=== PATIENT | male | born 1960 | race Caucasian/White ===

== ENCOUNTER → 2018-02-05 | Outpatient (CLI) | payer OTHER ==
[~2018-02-05] MED LIST: ACETAMINOPHEN325 M1 PO; ALEVE220 MG PO; ASPIRIN EC325 M1 PO; CYMBALTA30 MG PO; FLEXERIL PO; OXYCODONE HCL 55 MG PO; OXYCONTIN10 M1 PO; OXYCONTIN20 M1 PO; OXYIR5 MG PO; PROZAC20 MG PO; STOOL SOFTENER1 EAC2 PO; TORADOL 10 MG PO; VICODIN 5-5001 EACH PO; XANAX 0.5 MG0.5 MG PO; XARELTO10 MG PO; [UNRECOGNIZED DRUG - OTHER] PO
== END ==
LOC: M.MRI 01-28 10:15
DX: S46.211A Strain of muscle, fascia and tendon of other parts of biceps, right arm, initial encounter (principal); M75.21 Bicipital tendinitis, right shoulder; X58.XXXA Exposure to other specified factors, initial encounter; Y93.89 Activity, other specified; Y92.89 Other specified places as the place of occurrence of the external cause; Y99.8 Other external cause status